=== PATIENT | female | born 1955 | race Caucasian/White ===

== ENCOUNTER → 2023-10-08 12:27 | Outpatient (REF) | payer MEDICARE, OTHER, SELFPAY | LOC: HWWDC 12:27 | PROVIDERS: ATTENDING PHYSICIAN Nurse Practitioner Family; FAMILY PHYSICIAN Internal Medicine | DX: Z12.31 Encounter for screening mammogram for malignant neoplasm of breast (principal) | CPT/HCPCS: 77063; 77067 ==

== ENCOUNTER → 2023-10-16 09:21 | Outpatient (REF) | payer MEDICARE, OTHER, SELFPAY | LOC: HWRAD 09:21 | PROVIDERS: ATTENDING PHYSICIAN Internal Medicine; FAMILY PHYSICIAN Internal Medicine | DX: M81.0 Age-related osteoporosis without current pathological fracture (principal) | CPT/HCPCS: 77080; 77081 ==

== ENCOUNTER → 2023-12-18 19:38 | Outpatient (REF) | payer MEDICARE, OTHER, SELFPAY | LOC: MRI 3T 19:38 | PROVIDERS: ATTENDING PHYSICIAN Internal Medicine | DX: I67.1 Cerebral aneurysm, nonruptured (principal) | CPT/HCPCS: 70544; 70547 ==

== ENCOUNTER → 2024-12-02 11:48 | Outpatient (REF) | payer MEDICARE, OTHER, SELFPAY | LOC: WDC 11:48 | PROVIDERS: ATTENDING PHYSICIAN Nurse Practitioner Family; FAMILY PHYSICIAN Internal Medicine | DX: Z12.31 Encounter for screening mammogram for malignant neoplasm of breast (principal) | CPT/HCPCS: 77063; 77067 ==

== ENCOUNTER 2024-12-17 21:16 | Emergency (ER) | payer MEDICARE, OTHER, SELFPAY ==
[2024-12-17 21:18] VITALS: BP 142/110
[2024-12-18] VITALS: BP 150/82
[2024-12-18] MEDS: TYLENOL 1000 MG PO (00:07)
--- NOTE | 2024-12-18 00:49 | ED.GENMED ---
History of Present Illness
General
Chief Complaint: Skin Surface Trauma
Source: patient
Exam Limitations: none
Time Seen by Provider: 12/18/24 00:03
Nursing documentation reviewed up to this point in time: agreed with
History of Present Illness
History of Present Illness:
69-year-old female with a past medical history of IBS, chronic UTIs, migraine disorder presents emergency department today with concerns of a laceration to the anterior surface of her right wrist. Patient reports that she was getting a glass
measuring cup off of the upper cabinet when she dropped the cup and the cup broke onto her wrist, cutting the surface of her wrist. Patient ports that she had a lot of bleeding immediately and some pain as well. She currently denies any radiation
of the pain up the arm or down to the fingertips. She denies any loss of sensation or numbness or tingling. She denies any other injuries. She is unsure of her tetanus status.
Past History
Past History
ED Past Medical History: Hypercholesterolemia, Hypothyroidism, Other (Migraines) and Other (Cerebral aneurysm, irritable bowel syndrome, UTIs, kidney stones)
ED Past Surgical History: Gynecological (LEEP procedure) and Orthopedic (Right knee 2008)
Social History
Tobacco: Non-smoker
Alcohol: None
Personal:
Living: alone
Employment: Employed
Family History
Family History: Other (Noncontributory)
Review of Systems
Review of Systems
All Other Systems: ROS reviewed and negative except as documented in HPI and ROS
Phy Exam
Physical Exam
Physical Exam:
General: Patient is well appearing and in no acute distress; non-toxic
Skin: Warm and dry, 4.5 cm curved laceration noted to the right anterior surface of the wrist. No foreign body. Brisk capillary refill.
Head: Normocephalic, atraumatic
Eyes: Sclera non-icteric. EOMs intact.
Cardiac: Regular rate
Pulm: Normal respiratory effort
Musculoskeletal: No bony tenderness to palpation of the bones of the right wrist. No bony tenderness palpation of the phalanges. Full range of motion of bilateral upper extremities.
Neuro: CN II-XII intact, no focal neurologic deficits. Sensation tact good 2 point discrimination.
Psychiatric: Appropriate mood and affect.
Course
Orders/Labs/Results
Orders:
Orders
12/18/24 00:02
Acetaminophen [Tylenol] 1,000 mg .ROUTE .STK-MED ONE
12/18/24 00:07
Acetaminophen [Tylenol] 1,000 mg PO NOW STA
12/18/24 00:39
Tetanus/Diphth/Acelpertussis [Adacel] 0.5 ml IM .ONCE ONE
Vital Signs
Initial and Last Documented VS:
Initial Vital Signs
Temp Pulse Resp BP Pulse Ox
98.9 F 100 16 142/110 96
12/17/24 21:18 12/17/24 21:18 12/17/24 21:18 12/17/24 21:18 12/17/24 21:18
Last Documented Vital Signs
Temp Pulse Resp BP Pulse Ox
98.9 F 85 18 150/82 95
12/17/24 21:18 12/18/24 00:00 12/18/24 00:00 12/18/24 00:00 12/18/24 00:00
Procedures
Laceration Closure
Right Anterior Wrist:
Status of Wound: clean
Size of Wound in cm: 4.5
Description of Wound Edges: sharp
Preparation: cleaned with saline
Anesthesia: 1% Lidocaine with epi
Revision/Debridement: routine- no revision
Wound exploration: explored to base- no FB
Type of Closure: single layer closure
Skin Closure Material: 4-0 prolene
Number of sutures: 7
MDM/Problems Addressed
Differential Diagnosis Includes:
Abrasion, laceration, neurovascular
MDM/Problems Addressed:
69-year-old female with a past medical history of IBS, chronic UTIs, migraine disorder presents emergency department today with concerns of a laceration to the anterior surface of her right wrist. She injured it when she broke a clean glass cup
onto her wrist. The wound was thoroughly irrigated. The wound was repaired with stitches. No bony tenderness palpation no indication for x-ray at this time. She has full range of motion and good strength, sensation intact good 2 point
discrimination. Indication for antibiotics at this time. Discussed follow-up with primary care provider. Discussed return precautions. Patient stable for discharge
Chronic conditions affecting care:
IBS, migraine disorder, thyroid
*Pulse Oximetry
Patient hypoxic: no
*Critical Care Note
Total Time (30-74mins, 75-104mins- exclusive of procedures): Not Applicable
ED Attending Note
-
Portions of this chart may have been created with voice recognition software.� Occasional wrong word or��sound alike� substitutions may have occurred due to the inherent limitations of voice recognition software.
Discharge Plan
Departure
Patient Disposition: Home (Routine Discharge)
Date of Disposition: 12/18/24
Time of Disposition: 01:24
Patient with high blood pressure during this ER visit?: Yes
Condition: Good
Discharge Problem:
Laceration of wrist
Instructions: Laceration Repair With Stitches (DC), BLOOD PRESSURE
Prescriptions:
No Action
Vitamin C
1,000 mg PO DAILY
atorvastatin 10 MG tablet
10 mg PO QPM
multivitamin Tablet
1 tab PO DAILY
polyethylene glycol 3350 [Miralax] 17 gram Powder In Packet
17 g PO DAILY
levothyroxine 50 mcg Tablet
50 mcg PO DAILY
metoprolol succinate 25 mg Tablet Extended Release 24 Hr
25 mg PO HS
doxylamine succinate 25 mg Tablet
25 mg PO HS
coenzyme Q10 [Co Q-10] 100 mg Capsule
100 mg PO DAILY
cyclosporine [Restasis] 0.05 % Dropperette
1 drp OPHTHALMIC (EYE) Q12H
cholecalciferol (vitamin D3) [Vitamin D3] 50 mcg (2,000 unit) Capsule
50 mcg PO DAILY
Prolia 60 mg/mL Syringe
60 mg SC [id number]
d-mannose Powder
1 ea PO DAILY
Airborne Gummy 250-11.66 mg Tablet,Chewable
1 tab PO DAILY
Qulipta 60 mg Tablet
60 mg PO HS
Kidney Dining Room Maid
2 tab PO DAILY
Probiotic
1 tab PO DAILY
cranberry
650 mg PO DAILY
Cbd Oil
1 dose topical DAILYPRN PRN (Reason: knee pain)
mupirocin 2 % ointment
1 applic intranasal BID Qty: 1 0RF
Patient Comments:
started treatment 10/17/22 and was taking BID last took at home 10/20/22 at 0645
amitriptyline 10 mg Tablet
10 mg PO DAILY
docusate sodium 100 mg Capsule
100 mg PO BID Qty: 30 0RF
dexamethasone 4 mg Tablet
4 mg PO Q12 Qty: 5 0RF
Rx Instructions:
Restart night of discharge and take every 12 hours until finished.
Eliquis 2.5 mg Tablet
2.5 mg PO BID Qty: 28 0RF
Rx Instructions:
Restart night of discharge and take twice daily for next 2 weeks.
famotidine 20 mg Tablet
20 mg PO HS Qty: 14 0RF
Rx Instructions:
Take nightly while on post-surgical pain meds to reduce GI upset.
sennosides [senna] 8.6 mg Tablet
17.2 mg PO BID Qty: 30 0RF
aspirin 325 mg tablet
325 mg PO DAILY Qty: 14 0RF
Rx Instructions:
Take after finishing Eliquis for an additional 2 weeks for further blood clot prevention.
oxycodone 5 mg tablet
5 mg PO Q6H PRN (Reason: moderate-severe pain) Qty: 30 0RF
Rx Instructions:
1 tab for moderate pain, 2 if severe.
Dx total joint. Ongoing therapy.
ondansetron HCl 4 mg tablet
4 mg PO Q6H PRN (Reason: nausea and vomiting) Qty: 15 0RF
Excedrin Tension Headache 500-65 mg Tablet
2 tab PO Q6H PRN (Reason: headache) Qty: 1 0RF
Rx Instructions:
DO NOT exceed >3000 mg of Tylenol daily.
acetaminophen [Acetaminophen Extra Strength] 500 mg tablet
1,000 mg PO Q8H Qty: 60 0RF
Rx Instructions:
DO NOT exceed >3000 mg daily.
Referrals:
Jonna Gann MD [Family Provider] -
Activity Restrictions/Additional Instructions:
Please keep the wound dry for 24 hours. After 24 hours, you can rinse the wound with warm soapy water. Please not use hydrogen peroxide or alcohol over the wound.
7 stitches were placed today. Please report to your family doctor, urgent care, or return Emergency Department to have the stitches removed in 10 to 12 days.
PLEASE RETURN EMERGENCY DEPARTMENT SHOULD YOU DEVELOP PURULENT DRAINAGE FROM YOUR WOUND, SURROUNDING REDNESS OR SWELLING, LOSS OF SENSATION, INCREASING PAIN, INABILITY TO MOVE YOUR RIGHT HAND, OR ANY OTHER SIGNS OR SYMPTOMS WORRISOME TO YOU.
Interventions
Interventions:
*Risk Screen - Suicide Last Done: 12/17/24 21:18
*General Assessment Last Done: 12/17/24 21:18
*Neglect/Abuse Screening Last Done: 12/17/24 21:18
*ED- Fall Risk Assessment Last Done: 12/17/24 21:18
*ED COVID-19 Vaccine History Last Done: 12/17/24 21:18
*Nursing Disposition Last Done: 12/18/24 01:52
ED-Skin Assessment Last Done: 12/18/24 00:41
Discharge Date and Time
Discharge Date/Time: 12/18/24 01:53
Print Language: SAO TOMEAN
== END 2024-12-18 01:53 | disposition home or self-care (01) ==
LOC: EMR 21:16
PROVIDERS: EMERGENCY PHYSICIAN Emergency Medicine; FAMILY PHYSICIAN Internal Medicine
DX: S61.511A Laceration without foreign body of right wrist, initial encounter (principal); W25.XXXA Contact with sharp glass, initial encounter; K58.9 Irritable bowel syndrome, unspecified; G43.909 Migraine, unspecified, not intractable, without status migrainosus; E03.9 Hypothyroidism, unspecified
CPT/HCPCS: 99283; 12002; 90715

== ENCOUNTER → 2025-02-01 12:55 | Outpatient (REF) | payer MEDICARE, OTHER, SELFPAY | LOC: HWRCS 12:55 | DX: I77.3 Arterial fibromuscular dysplasia (principal); I67.1 Cerebral aneurysm, nonruptured; M35.9 Systemic involvement of connective tissue, unspecified | CPT/HCPCS: 93306 ==

== ENCOUNTER → 2025-02-22 06:42 | Outpatient (REF) | payer MEDICARE, OTHER, SELFPAY | LOC: PAVMRI 06:42 | PROVIDERS: ATTENDING PHYSICIAN Physician Assistant; FAMILY PHYSICIAN Internal Medicine | DX: M25.552 Pain in left hip (principal) | CPT/HCPCS: 73721 ==

== ENCOUNTER → 2025-06-02 13:39 | Outpatient (REF) | payer MEDICARE, OTHER, SELFPAY | LOC: WDC 13:39 | PROVIDERS: ATTENDING PHYSICIAN Nurse Practitioner Family; FAMILY PHYSICIAN Internal Medicine | DX: R92.2 Inconclusive mammogram (principal) | CPT/HCPCS: 76641 ==